=== PATIENT | male | born 1950 | race Caucasian/White ===

== ENCOUNTER → 2017-03-06 | Outpatient (CLI) | payer BC | LOC: BMCIMAGING 12:16 | PROVIDERS: ATTEND Internal Medicine | DX: M47.812 Spondylosis without myelopathy or radiculopathy, cervical region (principal); M53.2X2 Spinal instabilities, cervical region; S22.060A Wedge compression fracture of T7-T8 vertebra, initial encounter for closed fracture; M43.16 Spondylolisthesis, lumbar region; M43.17 Spondylolisthesis, lumbosacral region; Z98.1 Arthrodesis status ==

== ENCOUNTER → 2017-03-11 | Outpatient (CLI) | payer BC | LOC: BMCIMAGING 10:29 | PROVIDERS: ATTEND Internal Medicine | DX: M85.80 Other specified disorders of bone density and structure, unspecified site (principal) ==

== ENCOUNTER → 2017-03-14 | Outpatient (CLI) | payer BC | LOC: FIMAGING 08:03 | PROVIDERS: ATTEND Internal Medicine | DX: Z03.89 Encounter for observation for other suspected diseases and conditions ruled out (principal); S22.070A Wedge compression fracture of T9-T10 vertebra, initial encounter for closed fracture; Z87.891 Personal history of nicotine dependence ==

== ENCOUNTER → 2017-03-23 | Outpatient (CLI) | payer BC | LOC: FIMAGING 10:57 | PROVIDERS: ATTEND Internal Medicine | DX: M54.2 Cervicalgia (principal); M50.30 Other cervical disc degeneration, unspecified cervical region; M48.02 Spinal stenosis, cervical region; R93.8 Abnormal findings on diagnostic imaging of other specified body structures ==

== ENCOUNTER → 2017-03-29 | Outpatient (CLI) | payer BC | LOC: FIMAGING 11:02 | PROVIDERS: ATTEND Physician Assistant Medical | DX: M48.54XA Collapsed vertebra, not elsewhere classified, thoracic region, initial encounter for fracture (principal); M51.36 Other intervertebral disc degeneration, lumbar region ==

== ENCOUNTER → 2017-03-29 | Outpatient (CLI) | payer BC | LOC: FIMAGING 11:14 | DX: Z96.611 Presence of right artificial shoulder joint (principal) ==

== ENCOUNTER → 2017-04-14 | Outpatient (CLI) | payer BC | LOC: FIMAGING 15:40 | PROVIDERS: ATTEND Physician Assistant Medical | DX: M48.54XA Collapsed vertebra, not elsewhere classified, thoracic region, initial encounter for fracture (principal); I25.10 Atherosclerotic heart disease of native coronary artery without angina pectoris ==

== ENCOUNTER → 2017-12-17 | Outpatient (CLI) | payer OTHER | LOC: FIMAGING 09:07 | PROVIDERS: ATTEND Internal Medicine Cardiovascular Disease | DX: Z13.6 Encounter for screening for cardiovascular disorders (principal); I25.10 Atherosclerotic heart disease of native coronary artery without angina pectoris; I10 Essential (primary) hypertension ==

== ENCOUNTER → 2017-12-18 | Outpatient (CLI) | payer BC | LOC: FIMAGING 07:50 | PROVIDERS: ATTEND Physician Assistant Medical | DX: M50.31 Other cervical disc degeneration, high cervical region (principal); M48.02 Spinal stenosis, cervical region; M41.82 Other forms of scoliosis, cervical region; S13.170A Subluxation of C6/C7 cervical vertebrae, initial encounter; M53.84 Other specified dorsopathies, thoracic region ==

== ENCOUNTER → 2018-03-17 | Outpatient (CLI) | payer BC | LOC: FIMAGING 17:41 | PROVIDERS: ATTEND Physician Assistant | DX: M54.6 Pain in thoracic spine (principal); M53.84 Other specified dorsopathies, thoracic region ==

== ENCOUNTER → 2018-03-18 | Outpatient (CLI) | payer BC | LOC: FIMAGING 10:17 | PROVIDERS: ATTEND Internal Medicine | DX: R14.0 Abdominal distension (gaseous) (principal) ==

== ENCOUNTER → 2018-03-26 | Outpatient (CLI) | payer BC | LOC: FIMAGING 16:04 | PROVIDERS: ATTEND Internal Medicine | DX: Z13.83 Encounter for screening for respiratory disorder NEC (principal); M43.8X4 Other specified deforming dorsopathies, thoracic region; M48.54XS Collapsed vertebra, not elsewhere classified, thoracic region, sequela of fracture ==

== ENCOUNTER → 2018-05-21 | Outpatient (CLI) | payer BC | LOC: BMCIMAGING 10:40 | PROVIDERS: ATTEND Internal Medicine | DX: J40 Bronchitis, not specified as acute or chronic (principal) ==